=== PATIENT | male | born 2005 | race Caucasian/White ===

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

== ENCOUNTER → 2025-01-21 | Outpatient (CLI) | payer OTHER, SELFPAY ==
--- NOTE | 2025-01-21 15:22 | RAD_ITS ---
EXAM: XR Right Ankle Complete, 3 or More Views CLINICAL INDICATION: PAIN TECHNIQUE: Frontal, lateral and oblique views of the right ankle. COMPARISON: No relevant prior studies available. FINDINGS: BONES/JOINTS: Oblique lucency of the lateral malleolus is likely projectional. Correlation with point tenderness is recommended. No acute fracture. No dislocation. SOFT TISSUES: Soft tissue swelling. RAD/Ankle min 3 Views IMPRESSION: 1. Soft tissue swelling. 2. Oblique lucency of the lateral malleolus is likely projectional. Correlati on with point tenderness is recommended. Reading Location[facility]
--- NOTE | 2025-01-21 15:22 | RAD_ITS ---
EXAM: XR Right Ankle Complete, 3 or More Views CLINICAL INDICATION: PAIN TECHNIQUE: Frontal, lateral and oblique views of the right ankle. COMPARISON: No relevant prior studies available. FINDINGS: BONES/JOINTS: Oblique lucency of the lateral malleolus is likely projectional. Correlation with point tenderness is recommended. No acute fracture. No dislocation. SOFT TISSUES: Soft tissue swelling. RAD/Ankle min 3 Views IMPRESSION: 1. Soft tissue swelling. 2. Oblique lucency of the lateral malleolus is likely projectional. Correlati on with point tenderness is recommended. Reading Location: [facility]
--- OUTSIDE RECORDS SUMMARY | 2025-01-21 22:12 | XMS RPT_ITS | CCD ---
Author Organization [facility] Care Team Providers Care Boom Crane Operator Name Role Phone Saji Shea Referring Unavailable Saji Shea Primary Care Unavailable Saji Shea Attending Unavailable Ta Luu Attending Unavailable Ta Luu Referring Unavailable Saji Shea Primary Care Unavailable Medications Current Medications Medication Drug Class(es) Dates Sig (Normalized) Sig (Original) acetaminophen 325 mg oral capsule (1 source) Start: 09-17-2020 take 1 capsule by mouth once Acetaminophen (Tylenol) 325 mg capsule Active 325 MG PO ONCE September 17, 2020 1:00am docusate sodium 100 mg oral capsule (1 source) Start: 09-21-2020 take 100 mg by mouth once daily Docusate Sodium Active 100 MG PO DAILY September 21, 2020 12:00am ondansetron 8 mg oral tablet (1 source) Serotonin-3 Receptor Antagonist Start: 09-25-2020 take 8 mg by mouth every eight hours as needed Ondansetron Hcl Active 8 MG PO EVERY 8 HOURS NEEDED September 25, 2020 12:00am Completed/Discontinued Medications Medication Drug Class(es) Dates Sig (Normalized) Sig (Original) acetaminophen 325 mg / HYDROcodone bitartrate 5 mg oral tablet (3 sources) Opioid Agonist Start: 09-25-2020 End: 09-30-2020 take 1-2 tablets by mouth every six hours as needed Hydrocodone-Acetami nophen Discontinued 1 - 2 TABLET PO EVERY 6 HOURS NEEDED 40 September 25, 2020 September 30, 2020 12:03am stop all other narcotics and tylenol meds Start: 09-17-2020 take 1 tablet by carmen th once daily Hydrocodone-Acetaminophen Active 1 TABLE T PO DAILY September 17, 2020 1:00am Start: 09-13-2020 End: 09-16-2020 take 1 tablet by mouth every six hours as needed Hydrocodone-Acetaminophen Discontinued 1 TABLET PO EVERY 6 HOURS NEEDED 04 11September 13, 2020 September 16, 2020 1:03am cephalexin 500 mg oral capsule (1 source) Cephalosporin Antibacterial Start: 11-05-2020 End: 11-15-2020 take 500 mg by mouth every twelve hours at mealtime Cephalexin Discontinued 500 MG PO Q12H 20 November 05, 2020 12:00am November 15, 2020 12:01am take meds with food naproxen sodium 220 mg oral tablet (1 source) Nonsteroidal Anti-inflammatory Drug Start: 09-17-2020 End: 09-24-2020 take 1 tablet by mouth twice daily Naproxen Sodium (Aleve) 220 mg tablet Discontinued 220 MG PO TWICE A DAY September 17, 2020 1:00am September 24, 2020 10:07am Problems Active Problems Problem Classification Problem Date Documented Date Episodic/Chronic Administrative/social admission (1 source) Encounter for examination for participation in sport; Translations: [Encounter for examination for participation in sport] Onset: 12-23-2022 Episodic Complications of surgical procedures or medical care (2 sources) Dehiscence of external surgical incision wound; Translations: [Disruption of external operation (surgical) wound, not elsewhere classified, initial encounter] 11-24-2020 Episodic Fracture of lower limb (1 source) Closed fracture of ankle; Translations: [Other fracture of left lower leg, initial encounter for closed fracture] 09-14-2020 Episodic Other aftercare (2 sources) Follow-up status; Translations: [Encounter for other orthopedic aftercare] 11-19-2020 Episodic Past or Other Problems Problem Classification Problem Date Documented Da te Episodic/Chronic Other injuries and conditions due to external causes (1 source) Unspecified injury of right foot, initial encounter; Translations: [Unspecified injury of right foot, initial encounter] Onset: 03-23-2022 Episodic Results Test Name Value Interpretation Reference Range Facility Sickle Hgb Solubilityon 12-08 HgbSOL,SICKLE Negative Normal Negative [facility] Comment on above: Order Comment: Order Date: 12/13/22 Order Info: [id number] - SIC Result Comment: Sinc e a variety of conditions and other abnormal hemoglobins in addition to Hemoglobin S may give false- positive results, positive Hemoglobin Solubility tests should be confirmed by hemoglobin fractionation testing. Performed at: [address] [id number] Home Delivery Driver: Elmer Keith PhD, Phone: [phone] Performed By: #### L 800.8000 #### [facility] [address] [place] [address]. [place], [place], [id number] Hemoglobin S Solubility test Ql (Bld)Ordered By: Dr. Shea on 12-15-2022 Hemoglobin S Ql (Bld) Negative Negative [facility] Comment on above: Since a variety of c onditions and other abnormalhemoglobins in addition to Hemoglobin S may give false-positive results, positive Hemoglobin Solubility testsshould be confirmed by hemoglobin fractionation testing.Performed at: [address] [id number] Director: Elmer Keith PhD, Phone: [phone] Foot min 3 Viewson 2 Foot min 3 Views [facility] Imaging Services [address] [place] [address] Foot min 3 Views MR#: [id number] Acct: [id number] Name: STACIA BARKSDALE Rep #: [id number] : 2005 M 16 From: Cody Maher DO PCP: Dr. Saji Shea MD Status: REG CLI Study: Foot min 3 Views Date of Exam: 03/18/22 Exam# [id number] Ordering Dr: Ta Luu MD STUDY: X-RAY - RIGHT FOOT CLINICAL: Male, 16 years old. Toe injury. TECHNIQUE: 3 view(s) of the foot. COMPARISON: None. FINDINGS: Normal talus, calcaneus, and tarsal bones. Normal visualized subtalar, talonavicular, calcaneocuboid, tarsal and tarsometatarsal articulations. Normal metatarsi. Normal metatarsophalangeal joint of the great toe. Normal tibial and fibular sesamoid bones. Normal interphalangeal joint of the great toe. Normal phalanges of the great toe. Normal second through fifth metatarsophalangeal joints. Normal interphalangeal joints and phalanges of the lesser toes. The soft tissue structures are unremarkable. RAD/Foot min 3 Views IMPRESSION: Normal x-ray examination of the foot. Electronically Signed: Cody MaherDO at 22:41 EDT Reading Location ID and State: [address] [place] [address] Tel [phone], Service support , CC: Dr. Saji Shea MD; Dr. Ta Luu MD Link Knitting Machine Operator: Signed Normal [facility] Encounters Encounter Date Encounter Type Care Provider Facility Start: 12-15-2022 End: 12-16-2022 ambulatory Saji Shea Facility:[facility] Start: 12-15-2022 End: 12-15-2022 ambulatory [facility] Work Phone: Start: 12-15-2022 End: 12-15-2022 Patient encounter procedure [facility] Start: 03-18-2022 End: 03-18-2022 ambulatory Ta Luu Facility:[facility] Payers Date Payer Category Payer Self-pay [id number] 2022 Unknown [id number] 2012 Unknown [facility] [id number] Unknown [id number] .16.8 [id number] Unknown [id number] .16.8 [id number] Social History Date Type Detail Facility Start: 11-26-2020 [facility] Start: 09-13-[address] [facility] Start: 09-21-[address] [facility] Start: 2005 Sex Assigned At Male W [facility] Medical Equipment Procedure Code Equipment Code Equipment Origin al Text Equipment Identifier Dates ORIF, ankle Arthrex 2.7mm Cortical Screw FDA Start: 09-25-2020 ORIF, ankle Arthrex 2.7mm Cortical Screw FDA Start: 09-25-2020 ORIF, ankle NAIL,FIBULA 3X13 0 LEFT FDA Start: 09-25-2020 ORIF, ankle TIGHTROPE, XP FDA Start: 09-25-2020 Evaluation note Note Date & Type Note Facility Evaluation note No assessment information availa ble [facility] Work Phone: Chief Complaint and Reason for Visit Chief Complaint EORDER Summary Purpose Family History No Family History Records Found Advance Directives No Advanced Directives Records Found Additional Source Comments Care Teams (unrecognized sec tion and content) Team Status: Active Member Role Status Dates Dr. Saji Shea MD Family Provider Active Dr. Saji Shea MD Primary Care Provider Activ e Team Status: Inactive Member Role Status Dates Dr. Saji Shea MD Primary Care Provider, Attending Provider, Referring Provider Active Goals (unrecognized section and content) Goals may be documented in a n alternate section (unrecognized sect ion and content) No Status Records Found INFORMATION SOURCE (unrecogn ized section and content) DATE CREATED AUTHOR 12/23/2022 [facility] FOR RECORDS PERTAINING TO PATIENTS WHO ARE OR HAVE BEEN ENROLLED IN A CHEMICAL DEPENDENCY/SUBSTANCEABUSE PROGRAM, SOME INFORMATION MAY BE OMITTED. This clinical summary was aggregated from multiple sources. Caution should be exercised in using it in the provision of clinical care. This summary normalizes information from multiple sources, and as a consequence, information in this document may materially change the coding, format and clinical context of patient data. In addition, data may be omitted in some cases. CLINICAL DECISIONS SHOULD BE BASED ON THE PRIMARY CLINICAL RECORDS. [employer] provides no warranty or guarantee of the accuracy or completeness of information in this document.
--- OUTSIDE RECORDS SUMMARY | 2025-01-21 22:12 | XMS RPT_ITS | CCD ---
Author Organization [facility] Care Team Providers Care Gold Leaf Printer Name Role Phone Saji Shea Referring Unavailable [...] Hgb Solubilityon 12-08 HgbSOL,SICKLE Negative Normal Negative [facility] Comment on above: Order Comment: Order Date: 12/13/22 Order Info: [id number] - SIC Result Comment: Sinc e a variety of conditions and other abnormal hemoglobins in addition to Hemoglobin S may give false- positive results, positive Hemoglobin Solubility tests should be confirmed by hemoglobin fractionation testing. Performed at: [address] [id number] Trimmer Loader: Elmer Keith PhD, Phone: [phone] Performed By: #### L 800.8000 #### [facility] [address] [place] [address]. [place], [place], [id number] Hemoglobin S Solubility test Ql (Bld)Ordered By: Dr. Shea on 12-15-2022 Hemoglobin S Ql (Bld) Negative Negative [facility] Comment on above: Since a variety of c onditions and other abnormalhemoglobins in addition to Hemoglobin S may give false-positive results, positive Hemoglobin Solubility testsshould be confirmed by hemoglobin fractionation testing.Performed at: [address] [id number] Director: Elmer Keith PhD, Phone: [phone] Foot min 3 Viewson 2 Foot min 3 Views [facility] Imaging Services [address] [place] [address] Foot min 3 Views MR#: [id number] Acct: [id number] Name: STACIA BARKSDALE Rep #: [id number] : 2005 M 16 From: Cody Maher DO PCP: Dr. Saji Shea MD Status: REG CLI Study: Foot min 3 Views Date of Exam: 03/18/22 Exam# [id number] Ordering Dr: Ta Luu MD STUDY: X-RAY [...] 22:41 EDT Reading Location ID and State: [address] [place] [address] Tel [phone], Service support , CC: Dr. Saji Shea MD; Dr. Ta Luu MD Reactor Service Operator: Signed Normal [facility] Encounters Encounter Date Encounter Type Care Provider Facility Start: 12-15-2022 End: 12-16-2022 ambulatory Saji Shea Facility:[facility] Start: 12-15-2022 End: 12-15-[address] [facility] Work Phone: Start: 12-15-2022 End: 12-15-2022 Patient encounter procedure [facility] Start: 03-18-2022 End: 03-18-2022 ambulatory Ta Luu Facility:[facility] Payers Date Payer Category Payer Self-pay [id number] 2022 Unknown [id number] 2012 Unknown [facility] [id number] Unknown [id number] .[id number] [id number] Unknown [id number] .16.8 [id number] Social History Date Type Detail Facility [facility]: [facility]-26-2020 [facility] Start: 09-13-2020 With Family [facility] Start: 09-21-2020 Non-smoker [facility] Start: 2005 Sex Assigned At Male W [facility] Medical Equipment Procedure Code Equipment Code Equipment Origin al Text Equipment Identifier Dates ORIF, ankle Arthrex 2.7mm Cortical Screw FDA Start: 09-25-2020 ORIF, ankle Arthrex 2.7mm Cortical Screw FDA Start: 09-25-2020 ORIF, ankle NAIL,FIBULA 3X13 0 LEFT FDA Start: 09-25-2020 ORIF, ankle TIGHTROPE, XP FDA Start: 09-25-2020 Evaluation note Note Date & Type Note Facility Evaluation note No assessment information availa ble [facility] Work Phone: Chief Complaint and Reason for [...] section and content) DATE CREATED AUTHOR 12/23/2022 [facility] FOR RECORDS PERTAINING TO PATIENTS WHO ARE [...] BE BASED ON THE PRIMARY CLINICAL RECORDS. [employer] provides no warranty or guarantee of the accuracy or completeness of information in this document.
== END | disposition home or self-care (01) ==
LOC: MTRAD 15:21
PROVIDERS: PCP Family Medicine
DX: M25.571 Pain in right ankle and joints of right foot (principal)
CPT/HCPCS: 73610

== ENCOUNTER → 2025-01-29 | Outpatient (CLI) | payer OTHER, SELFPAY ==
--- NOTE | 2025-01-29 13:28 | MRI_ITS ---
PROCEDURE: LOWER EXT JOINT ONLY (ROUTINE) 01/29/2025 REASON FOR EXAM: IMPACT INJURY TECHNIQUE: LOWER EXT JOINT ONLY (ROUTINE) T1, T2, stir, multiplanar and multisequence images of the right ankle were obtained without IV contrast administration. COMPARISON: COMPARISON : January 21, 2025 x-ray FINDINGS: Bones: There is subcortical edema in the anterior distal tibial articular surface with mild joint space narrowing and marginal osteophyte formation. There is a 0.4 cm corticated osteochondral fragment in the anterior joint space. No acute fractures or dislocations. The contours of the talar dome are normal. Achilles tendon: Intact Achilles tendon. Plantar aponeurosis is intact. The lateral, medial and central cords of the plantar fascia are intact. Tendons: Evaluation of the peroneal tendons demonstrates no evidence of tendinosis or dislocation. The flexor digitorum longus, tibialis posterior and flexor hallucis longus tendons are intact. The extensor tendons are intact. The extensor retinaculum is intact and normal in signal. Sinus Tarsi: The subtalar joint is intact. Signal in the sinus tarsi is normal. Transverse and cervical ligaments are intact. Ligaments: Lateral syndesmotic ankle ligaments including the anterior and posterior tibiofibular ligaments are intact. The anterior and posterior talofibular ligaments are intact. The medial ankle ligaments including the deltoid and spring ligaments are intact. Effusion: There is a small effusion at the tibiotalar articulation and posterior subtalar joint. MRI/Lower Ext Joint Only (Routine) IMPRESSION: There is subcortical edema in the anterior distal tibial articular surface with mild joint space narrowing and marginal osteophyte formation. There is a 0.4 cm corticated osteochondral fragment in the anterior joint space . There is a small effusion at the tibiotalar articulation and posterior subtalar joint. Reading Location: [place]
== END | disposition home or self-care (01) ==
PROVIDERS: PCP Family Medicine
DX: M25.571 Pain in right ankle and joints of right foot (principal); W22.8XXA Striking against or struck by other objects, initial encounter; Y93.66 Activity, soccer
CPT/HCPCS: 73721